=== PATIENT | male | born 2005 | race Caucasian/White ===

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

== ENCOUNTER 2024-04-08 17:05 | Emergency (ER) | payer OTHER, SELFPAY ==
[2024-04-08 17:25] VITALS: BP 128/63; PULSE 62; RESP 14; TEMP 36.3; O2SAT 97
--- NOTE | 2024-04-08 17:38 | ED.URI ---
HPI - URI/Sore Throat General Chief Complaint: Upper Respiratory Infection Stated Complaint: Sore Throat Time Seen by Provider: 04/08/24 17:47 Source: patient, RN notes reviewed and old records reviewed Mode of arrival: ambulatory Limitations: no limitations History of Present Illness HPI Narrative: 19-year-old male presents to the [facility] with a sore throat since yesterday. No treatment prior to arrival Reports some congestion. Denies fevers Related Data Home Medications Medication Instructions Recorded Confirmed sumatriptan succinate 25 mg tablet 25 mg PO DAILY 08/07/20 04/08/24 fluoxetine 20 mg capsule 20 mg PO DAILY 04/08/24 04/08/24 ropinirole 0.5 mg tablet 0.5 mg PO HS 04/08/24 04/08/24 Allergies Allergy/AdvReac Type Severity Reaction Status Date / Time codeine Allergy Mild Hives / Verified 04/08/24 17:14 Red Face bee venom protein (honey bee) AdvReac Swelling Verified 04/08/24 17:47 wasp AdvReac Swelling Uncoded 04/08/24 17:47 Review of Systems Review of Systems: All systems reviewed & are unremarkable except as noted in HPI and below Constitutional: Constitutional: Reports no additional constitutional complaints Eyes: Eyes: Reports no additional eye complaints ENT: Reports as per HPI, Reports nasal congestion and Reports sore throat Cardiovascular: Cardiovascular: Reports no additional cardiovascular complaints, Denies chest pain and Denies dyspnea Respiratory: Respiratory: Reports no additional respiratory complaints, Denies chest congestion, Denies cough and Denies dyspnea Gastrointestinal: Gastrointestinal: Reports no additional gastrointestinal complaints, Denies abdominal pain, Denies nausea and Denies vomiting Musculoskeletal: Musculoskeletal: Reports no additional musculoskeletal complaints Integumentary/Breasts: Skin/Breast: Reports system reviewed and no additional complaints, except as docu Neurologic: Reports system reviewed and no additional complaints, except as documented Psychiatric: Psychiatric: Reports no additional psychiatric complaints Allergic/Immunologic: Allergic/Immunologic: Reports no additional allergic/immunologic complaints [facility] Surgical History Surgical History History of tonsillectomy Social History Social History Gender identity (if verbalized by the patient): Male Sexual Orientation (if Verbalized by the Patient): Straight or Heterosexual Comments At the time of my signature, I reviewed and agree with the nursing past medical, surgical, social, and family history. There is no relevant family history pertinent to the patient complaint. Exam Const: General: cooperative, healthy appearing, comfortable, no acute distress, well developed, alert and well nourished Nutritional Appearance: well nourished and obese Orientation/consciousness: patient oriented x3 Limitations: no limitations HENMT: Head: normal to inspection Ears: hearing grossly normal bilaterally, external ears normal, TM's normal bilaterally, EAC's normal and mastoids normal Face/Nose/Sinus: Normal external nose present, Normal nares present, Normal nasal mucous membranes and turbinates present, No nasal discharge present, normal facial exam, sinuses nontender and face symmetric Face and sinus: normal facial exam and face symmetric Throat: posterior oropharynx normal, uvula midline, postnasal drainage, tonsils absent and no uvular edema Eyes: General: appearance normal, both eyes and all related structures Alignment and Position: alignment normal Periorbital: periorbital findings normal Pupils: Equal, round and reactive pupils present EOM: EOMs intact bilaterally Neck: Neck: normal visual inspection, full ROM, no lymphadenopathy and no meningeal signs Chest: Chest palpation & inspection: normal inspection of the chest Resp: Effort & Inspection: normal respiratory effort and
== END 2024-04-08 18:00 | disposition home or self-care (01) ==
PROVIDERS: Emergency Provider Nurse Practitioner; PCP Nurse Practitioner Family
DX: R09.82 Postnasal drip (principal); J02.9 Acute pharyngitis, unspecified
CPT/HCPCS: 87081; 87880; 99213; G0463

== ENCOUNTER 2025-02-26 08:29 | Emergency (ER) | payer OTHER, SELFPAY ==
[2025-02-26 08:45] VITALS: BP 134/80; PULSE 63; RESP 14; TEMP 37.1; O2SAT 99
--- NOTE | 2025-02-26 08:51 | ED.URI ---
HPI - URI/Sore Throat General Chief Complaint: Upper Respiratory Infection Stated Complaint: sore throat,cough Time Seen by Provider: 02/26/25 08:56 Source: patient and RN notes reviewed Mode of arrival: ambulatory Limitations: no limitations History of Present Illness HPI Narrative: 20-year-old male presents with concern for cough, postnasal drainage, sore throat, body aches. He has not taken any [id number] medications for his symptoms. He denies fever MD elicited complaint: cough and sore throat Related Data Allergies Allergy/AdvReac Type Severity Reaction Status Date / Time codeine Allergy Mild Hives / Verified 02/26/25 08:44 Red Face bee venom protein (honey bee) AdvReac Swelling Verified 02/26/25 08:44 wasp AdvReac Swelling Uncoded 02/26/25 08:44 Review of Systems Review of Systems: CONSTITUTIONAL: Denies malaise, chills, sweats, or fever. EYES: Denies visual changes, redness, or discharge. ENT: Reports rhinorrhea, congestion, and sore throat. CARDIOVASCULAR: Denies chest pain, palpitations, or edema. RESPIRATORY: Reports cough. Denies dyspnea. GASTROINTESTINAL: Denies abdominal pain, nausea, vomiting, diarrhea SKIN: Denies rash or itching. MUSCULOSKELETAL: Reports myalgia. NEUROLOGIC: Denies headache. All systems reviewed & are unremarkable except as noted in HPI and below PMFSH Surgical History Surgical History History of tonsillectomy Social History Social History Gender identity (if verbalized by the patient): Male Sexual Orientation (if Verbalized by the Patient): Straight or Heterosexual Comments At time of signature, agree with nursing past medical, surgical, social and family history. There is no relevant family history pertinent to the presenting complaint Exam Narrative: GENERAL: Well-appearing, well-nourished, and in no acute distress. HEAD: Normocephalic EYES: PERRLA, conjunctivae clear ENT: Nares clear, clear discharge. Mucous membranes moist. TM pearly george with dull light reflex bilaterally; no tragal tenderness. Oropharynx not erythematous without lesions. Tonsils not enlarged and without exudate, no drooling, no hoarseness, no trismus, uvula midline. NECK: Supple. No lymphadenopathy CHEST: Clear to auscultation, breath sounds equal. No wheezing, rhonchi, rales, or stridor. No respiratory distress, speaks in full sentences. HEART: Regular rate and rhythm. No murmur heard. SKIN: Warm, dry, no rash. NEURO: Alert and oriented x3. PSYCH: Normal mood and affect Course Course Emergency Course: Patient is aware of diagnosis, understands and agrees to treatment plan. Anticipatory guidance given. Patient agrees to follow-up as directed and is aware of reasons to seek care at the emergency department. Portions of this record may have been created with voice recognition software Level of Care: Express Care Visit Vital Signs Vital signs: Vital Signs Temperature 98.8 F 02/26/25 08:45 Pulse Rate 63 02/26/25 08:45 Respiratory Rate 14 02/26/25 08:45 Blood Pressure 134/80 02/26/25 08:45 Pulse Oximetry 99 02/26/25 08:45 Oxygen Delivery Room Air 02/26/25 08:45 Temperature 98.8 F 02/26/25 08:45 Pulse Rate 63 02/26/25 08:45 Respiratory Rate 14 02/26/25 08:45 Blood Pressure 134/80 02/26/25 08:45 Pulse Oximetry 99 02/26/25 08:45 Oxygen Delivery Room Air 02/26/25 08:45 Reviewed. MDM - URI/Sore Throat MDM Narrative Medical decision making narrative: Differential diagnosis considered: Danielle virus, strep pharyngitis, allergic rhinitis, upper respiratory tract infection, sinusitis, rhinosinusitis, nasopharyngitis. viral pharyngitis, otitis media, otitis externa, pneumonia, bronchitis, viral cough syndrome, viral syndrome, and influenza. Exam findings show no acute concerns or changes; patient is non-toxic appearing and is in no distress. Patient is appropriate for outpatient treatment and follow-up. Lab Data Attestation: I reviewed the patient's lab results. Critical Care Time Critical Care Time Critical Care Time: No Discharge Plan Discharge Clinical Impression: Upper respiratory infection Patient Disposition: Home Condition: Stable Instructions: Upper Respiratory Infection (ED) Additional Instructions: Your rapid COVID and flu tests are negative Your rapid strep swab was negative today at [facility]. A throat culture will be sent to the laboratory for further testing. If the test is positive, you will receive a phone call within 48 hours and an appropriate antibiotic will be initiated at that time. Your symptoms are likely due to a viral illness, which is not treated with antibiotics. Viral symptoms can be present for up to a few weeks. -Alternate Tylenol and Motrin per package directions for fever or pain. -Antihistamine medication such as Benadryl at night and Zyrtec during the day can help improve symptoms. -Eat and drink things that are easy to swallow, like tea or soup, or popsicles to suck on. -Oral rinses such as: Salt water gargles and/or may use topical anesthetic (eg. Chloraseptic spray) or lozenges to relieve dryness or throat pain). -Frequent hand washing or hand geriatric assistant is one of the best ways to prevent spread of infection. -Follow up with primary care provider in 2-3 days if condition is not improving; or seek ER visit if you have trouble breathing, cannot drink enough fluids, have muffled voice, difficulty opening your mouth, or severe swelling. Patient Language: Tristanian Prescriptions: New pseudoephedrine HCl [12 Hour Decongestant] 120 mg tablet extended release 120 mg PO Q12H PRN (Reason: nasal congestion) Qty: 20 0RF dextromethorphan-guaifenesin [Mucinex DM] 60-1,200 mg tablet extended release 12 hr 1 tablet PO Q12H Qty: 12 0RF Follow-up/Referrals: PHYSICIAN NOT ON STAFF,NONSTAFF [Primary Care Provider] - Time of Disposition: 09:05
[2025-02-26 09:41] LABS: EDCOVIDSCREEN Negative (Negative); EDINFLUASCREEN Negative (Negative); EDINFLUBSCREEN Negative (Negative); EDSTREPNEGPOS1 Negative (Negative)
== END 2025-02-26 09:12 | disposition home or self-care (01) ==
PROVIDERS: Emergency Provider Nurse Practitioner
DX: J06.9 Acute upper respiratory infection, unspecified (principal); Z20.822 Contact with and (suspected) exposure to COVID-19
CPT/HCPCS: 87081; 87426; 87804; 87880; 99213; G0463

== ENCOUNTER 2025-03-10 16:06 | Emergency (ER) | payer OTHER, SELFPAY ==
[2025-03-10 16:14] VITALS: BP 121/71; PULSE 70; RESP 18; TEMP 36.5; O2SAT 96
--- NOTE | 2025-03-10 16:14 | ED_ITS ---
HPI - Ear Problem General Chief complaint: Ear Stated complaint: Left Ear Irritation Time Seen by Provider: 03/10/25 16:14 Source: patient, RN notes reviewed and old records reviewed Mode of arrival: ambulatory Limitations: no limitations History of Present Illness HPI Narrative: 20-year-old male presents to the [facility] with left ear pressure. States started about a week ago after he was diagnosed with an upper respiratory virus, had colds primary who did call in azithromycin for the upper respiratory virus. Related Data Allergies Allergy/AdvReac Type Severity Reaction Status Date / Time codeine Allergy Mild Hives / Verified 03/10/25 16:07 Red Face bee venom protein (honey bee) AdvReac Swelling Verified 03/10/25 16:07 wasp AdvReac Swelling Uncoded 03/10/25 16:07 Review of Systems Review of Systems: All systems reviewed & are unremarkable except as noted in HPI and below Constitutional: Constitutional: Reports no additional constitutional complaints ENT: Reports as per HPI Cardiovascular: Cardiovascular: Reports no additional cardiovascular complaints, Denies chest pain and Denies dyspnea Respiratory: Respiratory: Reports no additional respiratory complaints, Denies chest congestion, Denies cough and Denies dyspnea Musculoskeletal: Musculoskeletal: Reports no additional musculoskeletal complaints Integumentary/Breasts: Skin/Breast: Reports system reviewed and no additional complaints, except as docu PMFSH Surgical History Surgical History History of tonsillectomy Social History Social History Gender identity (if verbalized by the patient): Male Sexual Orientation (if Verbalized by the Patient): Straight or Heterosexual Comments At the time of my signature, I reviewed and agree with the nursing past medical, surgical, social, and family history. There is no relevant family history pertinent to the patient complaint. Exam Const: General: cooperative, healthy appearing, comfortable, no acute distress, well developed, alert and well nourished Nutritional Appearance: well nourished Orientation/consciousness: patient oriented x3 Limitations: no limitations HENMT: Head: normal to inspection Ears: hearing grossly normal bilaterally, external ears normal and TM abnormal with fluid behind the TM bilateral; not bulging and not erythematous Face/Nose/Sinus: Normal external nose present, Normal nares present and No nasal discharge present Face and sinus: normal facial exam and face symmetric Mouth: Yes Normal oral and palatal mucosa present, Yes lip normal, Yes tongue normal and Yes moist mucous membranes Throat: posterior oropharynx normal, uvula midline and no uvular edema Eyes: General: appearance normal, both eyes and all related structures Alignment and Position: alignment normal Neck: Neck: normal visual inspection, full ROM, no lymphadenopathy and no meningeal signs Chest: Chest palpation & inspection: normal inspection of the chest Resp: Effort & Inspection: normal respiratory effort and able to speak in complete sentences Auscultation: clear to auscultation bilaterally, no crackles, no rales, no rhonchi and no wheezes Cardio: Rate: regular rate Skin: General skin exam: normal color and no rashes or lesions noted Neuro: General: patient oriented x3, gait normal, moves all extremities and no meningeal signs Cognition (Neuro): normal cognition Speech: normal speech Gait exam (Neuro): Normal gait present Extrem: General: normal to inspection, full ROM, capillary refill normal and normal gait Psych: Appearance: grossly normal and well kempt Mental Status: mental status grossly normal Speech and movement: Normal speech and movement present and Clear speech present Affect: normal affect Attitude: cooperative Course Course Level of Care: Express Care Visit Vital Signs Vital signs: Vital Signs Temperature 97.7 F 03/10/25 16:14 Pulse Rate 70 03/10/25 16:14 Respiratory Rate 18 03/10/25 16:14 Blood Pressure 121/71 03/10/25 16:14 Pulse Oximetry 96 03/10/25 16:14 Oxygen Delivery Room Air 03/10/25 16:14 Temperature 97.7 F 03/10/25 16:14 Pulse Rate 70 03/10/25 16:14 Respiratory Rate 18 03/10/25 16:14 Blood Pressure 121/71 03/10/25 16:14 Pulse Oximetry 96 03/10/25 16:14 Oxygen Delivery Room Air 03/10/25 16:14 Reviewed Medical Decision Making MDM Narrative Medical decision making narrative: Patient sitting in exam room. Patient is nontoxic, vitals stable. Patient presents with left ear discomfort, pressure and feeling there is fluid in the ear. Is currently on azithromycin. Clear fluid noted, no erythema. Patient appropriate for outpatient treatment with close follow-up Discharge instructions reviewed with patient, as well as provided in writing per nursing staff. The instructions also include specific and strict return/GO TO THE ER as well as f/u information. All questions have been answered, and the patient deny any further questions with discharge and discharge plan. Some parts of this dictation were generated by voice recognition software and may contain typographical and/or grammatical inaccuracies. Differential Diagnosis Differential Diagnosis: Otitis media, serous otitis, otitis externa, URI Medical Records Medical records reviewed: Yes I reviewed the external patient's medical records. Vital Signs Vital Signs: Vital Signs Temperature 97.7 F 03/10/25 16:14 Pulse Rate 70 03/10/25 16:14 Respiratory Rate 18 03/10/25 16:14 Blood Pressure 121/71 03/10/25 16:14 Pulse Oximetry 96 03/10/25 16:14 Oxygen Delivery Room Air 03/10/25 16:14 Temperature 97.7 F 03/10/25 16:14 Pulse Rate 70 03/10/25 16:14 Respiratory Rate 18 03/10/25 16:14 Blood Pressure 121/71 03/10/25 16:14 Pulse Oximetry 96 03/10/25 16:14 Oxygen Delivery Room Air 03/10/25 16:14 Reviewed Lab Data Lab results reviewed: Yes I reviewed the patient's lab results. Labs: Reviewed Critical Care Time Critical Care Time Critical Care Time: No Discharge Plan Discharge Clinical Impression: Earache on left Patient Disposition: Home Condition: Stable Instructions: Antibiotic Form, Earache (ED), Fluid In The Ear (Serous Otitis Media) (ED) Additional Instructions: Take allergy medication such as Claritin or Zyrtec daily Use Flonase nasal spray twice daily for 5 days then daily. Follow-up with primary care provider Patient Language: Upper Sorbian Follow-up/Referrals: PHYSICIAN,SHIPYARD PAINTER APPRENTICE [Primary Care Provider] - Time of Disposition: 16:21
== END 2025-03-10 16:25 | disposition home or self-care (01) ==
PROVIDERS: Emergency Provider Nurse Practitioner
DX: H92.02 Otalgia, left ear (principal)
CPT/HCPCS: 99211; G0463

== ENCOUNTER 2025-04-02 09:21 | Emergency (ER) | payer OTHER, SELFPAY ==
--- NOTE | ~2025-04-02 | XR_ITS ---
Clinical Indication: Cough, shortness of breath PA and lateral views of the chest: Comparison: None Findings: The lungs are clear, without evidence of focal consolidation or pleural effusion. Cardiome diastinal silhouette is within normal limits. Bones and soft tissues are unremarkable. Impression: Normal chest. Reviewed, dictated and finalized at location . Impression: Normal chest.
--- NOTE | 2025-04-02 09:27 | ED.URI ---
HPI - URI/Sore Throat General Chief Complaint: Upper Respiratory Infection Stated Complaint: Cough/Congestion Time Seen by Provider: 04/02/25 09:40 Source: patient Mode of arrival: ambulatory Limitations: no limitations History of Present Illness HPI Narrative: Bart is a 20-year-old male patient presenting to the clinic today with complaints of nonproductive cough, congestion, loss of taste, loss of smell, shortness of breath, and chest discomfort with coughing x1 week. History of asthma. Does smoke marijuana. Denies any fevers, chills, body aches. He feels short of breath more on exertion. Does not take any medications on a daily basis. Does not have an albuterol inhaler at home. Related Data Allergies Allergy/AdvReac Type Severity Reaction Status Date / Time codeine Allergy Mild Hives / Verified 04/02/25 09:55 Red Face bee venom protein (honey bee) AdvReac Swelling Verified 04/02/25 09:55 wasp AdvReac Swelling Uncoded 04/02/25 09:55 Review of Systems Review of Systems: Pertinent positives per HPI. Patient denies any fever, chills, rash, headache, visual changes, dizziness, chest pain, palpitations, nausea, vomiting, diarrhea, constipation, abdominal pain, or any urinary issues. FORMERLY [facility], [facility]–1983 Surgical History Surgical History History of tonsillectomy Social History Social History Gender identity (if verbalized by the patient): Male Sexual Orientation (if Verbalized by the Patient): Straight or Heterosexual Comments At the time of my signature, I reviewed and agree with the nursing past medical, surgical, social, and family history. There is no relevant family history pertinent to the patient complaint. Exam Narrative: General: Well-developed, well nourished, in no apparent distress Head: Normocephalic, atraumatic Eyes: Pupils equally round and reactive to light bilaterally, EOM intact, sclera and conjunctive clear, no discharge, lids normal Ears: TMs intact and clear, ear canals clear, no drainage, grossly hearing normal. Nose: Nares patent, clear nasal discharge, moderate inflammation, no sinus tenderness. Mouth: Oral pharynx red without lesions or masses, good dentition, MMM. Neck: Supple, trachea midline, no enlargement of anterior or posterior cervical nodes, no thyroid masses or goiter palpable. Cardio: Regular rate and rhythm, s1 and s2 normal, no murmur appreciated. Resp: Diminished breath sounds throughout lung adhikari, no rhonchi, rales, wheezing or rubs, SpO2 95% on room air, no retractions or tripod positioning, able to speak in full sentences Course Course Emergency Course: Portions of this record may have been created with voice recognition software. Level of Care: Express Care Visit Vital Signs Vital signs: Vital Signs Temperature 36.2 C L 04/02/25 09:34 Pulse Rate 66 04/02/25 09:34 Respiratory Rate 20 04/02/25 09:34 Blood Pressure 141/78 H 04/02/25 09:34 Pulse Oximetry 95 04/02/25 09:34 Oxygen Delivery Room Air 04/02/25 09:34 Temperature 36.2 C L 04/02/25 09:34 Pulse Rate 66 04/02/25 09:34 Respiratory Rate 20 04/02/25 09:34 Blood Pressure 141/78 H 04/02/25 09:34 Pulse Oximetry 95 04/02/25 09:34 Oxygen Delivery Room Air 04/02/25 09:34 Vital signs reviewed MDM - URI/Sore Throat MDM Narrative Medical decision making narrative: At the time of visit patient is resting comfortably on the exam table. Patient appears to be nontoxic. Labs: COVID testing was negative. Diagnostics: Chest x-ray is negative for any acute cardiopulmonary process. Medications: DuoNeb treatment was given in the clinic today. Patient's lung sounds improved and he reports feeling like his shortness of breath has resolved Well criteria for PE: 0.0?points Low risk group: 1.3% chance of PE in an ED population. Plan: I suspect patient has URI with asthma exacerbation. Prescription for albuterol inhaler prednisone was sent to pharmacy. No sign of bacterial infection in the clinic today. Supportive measures were discussed with the patient and they voiced understanding discharge instructions and agrees to treatment plan. Return precautions reviewed Differential Diagnosis Differential diagnosis: Likely upper respiratory infection, otitis media (Asthma, pneumonia), sinusitis, viral infection, bronchitis, influenza, pharyngitis and other (COVID) Lab Data Labs: Lab Results 04/02/25 Range/Units 09:30 POC SARS CoV-2 Ag Negative (Negative) Imaging Data Radiologist's impression: ITS Impressions Chest X-Ray 04/02/25 09:56 Impression: Normal chest. Discharge Plan Discharge Clinical Impression: URI (upper respiratory infection) Qualifiers: URI type: unspecified URI Qualified Code(s): J06.9 - Acute upper respiratory infection, unspecified Asthma exacerbation Qualifiers: Asthma severity: unspecified severity Asthma persistence: unspecified Qualified Code(s): J45.901 - Unspecified asthma with (acute) exacerbation Patient Disposition: Home Condition: Stable Instructions: Antibiotic Form, Asthma (ED), Cold Symptoms (ED) Additional Instructions: COVID testing was negative in the clinic today. Chest x-rays negative for any acute cardiopulmonary process. No sign of bacterial infection in the clinic today Take prescription medications only as prescribed-prednisone and albuterol inhaler Increase fluids and stay well hydrated Tylenol/motrin for pain/fever Flonase and OTC antihistamines as directed Vicks vapor rub to open sinuses Sinus rinses for congestion Cepacol spray, cough drops, throat lozenges, warm tea with honey/lemon, gargle salt water to soothe throat BRAT diet for diarrhea Clear liquids x 24 hours then advance as tolerated for nausea/vomiting Go to the ED if you develop a worsening in your condition- high fever not controlled by Tylenol or Motrin, dehydration, weakness, lethargy, shortness of breath, or chest pain. Follow up with your PCP in 3-5 days if symptoms persist. Patient Language: Egyptian Prescriptions: New prednisone 20 mg tablet 40 mg PO DAILY 5 Days Qty: 10 0RF albuterol sulfate 90 mcg/actuation HFA aerosol inhaler 2 puff inhalation Q4-6H PRN (Reason: shortness of breath or wheezing) 30 Days Qty: 8.5 0RF Follow-up/Referrals: PHYSICIAN,STEAM METER READER [Primary Care Provider] - Time of Disposition: 10:03 Quality NIHSS Nursing Documentation ED NIHSS nursing documentation: reviewed/agree
[2025-04-02 09:34] VITALS: BP 141/78; PULSE 66; RESP 20; TEMP 36.2; O2SAT 95
[2025-04-02 09:55] LABS: EDCOVIDSCREEN Negative (Negative)
[2025-04-02] MEDS: IPRATROPIUM 0.5 MG/ALBUTEROL SULFATE 2.5 MG AMPUL.NEB 3 ML INHALATION (10:00)
== END 2025-04-02 10:16 | disposition home or self-care (01) ==
PROVIDERS: Emergency Provider Nurse Practitioner Family
DX: J06.9 Acute upper respiratory infection, unspecified (principal); J45.901 Unspecified asthma with (acute) exacerbation; Z20.822 Contact with and (suspected) exposure to COVID-19
CPT/HCPCS: 71046; 87426; 94640; 99213; G0463

== ENCOUNTER 2025-06-16 18:04 | Emergency (ER) | payer OTHER, SELFPAY ==
--- NOTE | 2025-06-16 18:06 | ED_ITS ---
HPI - General Adult General Chief complaint: Upper Respiratory Infection Stated complaint: Sore Throat Time Seen by Provider: 06/16/25 18:06 Source: patient Mode of arrival: ambulatory Limitations: no limitations History of Present Illness HPI narrative: 20-year-old male patient presents to the [facility] with complaints of cold symptoms for the past 5-7 days. Patient states he has had a cough, sore throat. Patient states he did have some body aches and chills but most of his symptoms have resolved but now only complain about the cough and sore throat. Patient states he has been taking some Tylenol and effc-wxs-jysuqrc mucus medication. Related Data Allergies Allergy/AdvReac Type Severity Reaction Status Date / Time codeine Allergy Mild Hives / Verified 06/16/25 18:05 Red Face bee venom protein (honey bee) AdvReac Swelling Verified 06/16/25 18:05 wasp AdvReac Swelling Uncoded 06/16/25 18:05 Review of Systems Review of Systems: CONSTITUTIONAL: Denies fever, chills, or sweats. EYES: Denies visual changes, redness, or discharge. ENT: Positive rhinorrhea, congestion, positive sore throat, denies otalgia. CARDIOVASCULAR: Denies chest pain, palpitations, or edema. RESPIRATORY: Denies cough or dyspnea. GASTROINTESTINAL: Denies abdominal pain, nausea, vomiting, or diarrhea. GENITOURINARY: Denies dysuria or hematuria. SKIN: Denies rash or itching. MUSCULOSKELETAL: Denies back pain, joint pain, or myalgia. NEUROLOGIC: Denies headache, numbness, or weakness. PSYCHIATRIC: Denies anxiety or depression. [facility] Past Medical History Medical History IBS (irritable bowel syndrome) Surgical History Surgical History History of tonsillectomy Social History Social History Gender identity (if verbalized by the patient): Male Sexual Orientation (if Verbalized by the Patient): Straight or Heterosexual Comments At the time of my signature I agree with nursing past medical history, surgical, social, and family history. There is no relevant family history pertinent to the presenting complaint. Exam Narrative: GENERAL: Well-appearing, well-nourished, and in no acute distress. HEAD: Normocephalic, atraumatic. EYES: PERRLA and EOMI. ENT: Nares clear, no rhinorrhea or epistaxis. Mucous membranes moist. Posterior pharynx with no erythema, tonsillar enlargement, exudates or lesions present. Bilateral TMs are clear no erythema or foreign bodies canal. NECK: Supple. No lymphadenopathy CHEST: Clear to auscultation. No respiratory distress. HEART: Regular rate and rhythm. No murmur heard. Normal peripheral pulses. ABDOMEN: Soft, nontender, nondistended, normal active bowel sounds. EXTREMITIES: Normal range of motion. No edema. SKIN: Warm, dry, no rash. NEURO: No focal deficits. Alert and oriented x3. Course Course Level of Care: Express Care Visit Vital Signs Vital signs: Vital Signs Temperature 36.6 C 06/16/25 18:14 Pulse Rate 68 06/16/25 18:14 Respiratory Rate 18 06/16/25 18:14 Blood Pressure 157/83 H 06/16/25 18:14 Pulse Oximetry 99 06/16/25 18:14 Oxygen Delivery Room Air 06/16/25 18:14 Temperature 36.6 C 06/16/25 18:14 Pulse Rate 68 06/16/25 18:14 Respiratory Rate 18 06/16/25 18:14 Blood Pressure 157/83 H 06/16/25 18:14 Pulse Oximetry 99 06/16/25 18:14 Oxygen Delivery Room Air 06/16/25 18:14 Vital signs reviewed. Medical Decision Making MDM Narrative Medical decision making narrative: Notified patient that his strep, COVID and flu have all come back negative. Discussed with him he most likely has some type of virus. Discussed with him some kjne-qdk-hqfuceh medications that he can use as well as home remedies to help with the symptoms. Differential Diagnosis Differential Diagnosis: Differential diagnosis: Viral pharyngitis, pharyngitis, group A strep, infectious mononucleosis, gonococcal pharyngitis, exudative pharyngitis, oral candidiasis. Chronic allergies, postnasal drip, GERD, abscess formation, but glottitis, retropharyngeal abscess formation, or airway obstruction. Vital Signs Vital Signs: Vital Signs Temperature 36.6 C 06/16/25 18:14 Pulse Rate 68 06/16/25 18:14 Respiratory Rate 18 06/16/25 18:14 Blood Pressure 157/83 H 06/16/25 18:14 Pulse Oximetry 99 06/16/25 18:14 Oxygen Delivery Room Air 06/16/25 18:14 Temperature 36.6 C 06/16/25 18:14 Pulse Rate 68 06/16/25 18:14 Respiratory Rate 18 06/16/25 18:14 Blood Pressure 157/83 H 06/16/25 18:14 Pulse Oximetry 99 06/16/25 18:14 Oxygen Delivery Room Air 06/16/25 18:14 Lab Data Labs: Lab Results 06/16/25 Range/Units 18:19 POC Grp A Strep Screen Pending Critical Care Time Critical Care Time Critical Care Time: No Discharge Plan Discharge Clinical Impression: Viral URI Patient Disposition: Home Condition: Stable Instructions: Antibiotic Form, Viral Syndrome (ED) Additional Instructions: Viral illness may last between 7-12days; antibiotic is NOT recommended at this time. Recommend antihistamine such as Benadryl at night time and Claritin/Zyrtec/Elvia during the day May use qlov-omw-dayrgih vitamins to help boost your immune system such as vitamin-C, vitamin-D and zinc. May use warm salt water to gargle to help with the throat pain along with hot tea and honey to help with the sore throat and cough. Also, recommend symptomatic treatment includes: rest, fluids, and increase humidity of the air at home. Recommend Acetaminophen or nonsteroidal anti-inflammatory agents (NSAIDs) as directed in the bottle to reduce fever and/pain/headache. Avoid smoking/second-hand smoke. Limit visits to areas with large crowds. Please schedule a follow-up visit with your personal physician for further evaluation and treatment within 3-5days. Including recheck and discussion of your blood pressure. If your symptoms persist, change or worsen significantly before you can contact your personal physician then please, without delay, go to the emergency department for further evaluation. Patient Language: Hungarian Follow-up/Referrals: PHYSICIAN,ELECTROSTATIC PAINTER [Primary Care Provider] - Time of Disposition: 18:27
[2025-06-16 18:14] VITALS: BP 157/83; PULSE 68; RESP 18; TEMP 36.6; O2SAT 99
[2025-06-16 18:21] LABS: EDSTREPNEGPOS1 Negative (Negative)
[2025-06-16 18:38] LABS: EDCOVIDSCREEN Negative (Negative); EDINFLUASCREEN Negative (Negative); EDINFLUBSCREEN Negative (Negative)
== END 2025-06-16 18:40 | disposition home or self-care (01) ==
PROVIDERS: Emergency Provider Nurse Practitioner Family
DX: J06.9 Acute upper respiratory infection, unspecified (principal); Z20.822 Contact with and (suspected) exposure to COVID-19
CPT/HCPCS: 87081; 87426; 87804; 87880; 99213; G0463

== ENCOUNTER 2025-08-15 08:51 | Emergency (ER) | payer OTHER, SELFPAY ==
--- NOTE | 2025-08-15 08:54 | ED.GENADULT ---
HPI - General Adult General Chief complaint: Nausea/Vomiting/Diarrhea Stated complaint: nausea/vomiting Source: patient Mode of arrival: ambulatory Limitations: no limitations History of Present Illness HPI narrative: Pt is a 20 y/o male presenting with c/o N,V x 3 days. Reports single episode of nonbloody, nonbilious emesis yesterday. No diarrhea. NO recent travel. No known exposure to foods. NO recent abx use. No similar sx among household contacts. No recent dietary changes. 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 Related Data Home Medications ?Medication ?Instructions ?Recorded ?Confirmed ?Last Taken ?Type albuterol sulfate 90 mcg/actuation inhalation 08/15/25 Unknown History aerosol inhaler Allergies Allergy/AdvReac Type Severity Reaction Status Date / Time codeine Allergy Mild Hives / Verified 06/16/25 18:05 Red Face bee venom protein (honey bee) AdvReac Swelling Verified 06/16/25 18:05 wasp AdvReac Swelling Uncoded 06/16/25 18:05 Review of Systems Review of Systems: CONSTITUTIONAL: Denies body aches, fever, chills, or sweats. EYES: Denies visual changes, redness, or discharge. ENT: Denies rhinorrhea, congestion, sore throat, or otalgia. CARDIOVASCULAR: Denies chest pain, palpitations, or edema. RESPIRATORY: Denies cough or dyspnea. GASTROINTESTINAL:reports nausea, vomiting. Denies abdominal pain or diarrhea. GENITOURINARY: Denies dysuria or hematuria. SKIN: Denies rash, itching, or wounds. MUSCULOSKELETAL: Denies back pain, joint pain, or myalgia. NEUROLOGIC: Denies headache, numbness, tingling, or weakness. PSYCH: Denies depression or anxiety. All systems reviewed & are unremarkable except as noted in HPI and below PMFSH Past Medical History Medical History IBS (irritable bowel syndrome) Surgical History Surgical History History of tonsillectomy Social History Social History Gender identity (if verbalized by the patient): Male Sexual Orientation (if Verbalized by the Patient): Straight or Heterosexual Exam Narrative: GENERAL: Well-appearing, well-nourished, and in no acute distress. HEAD: Normocephalic, atraumatic. EYES: EOMI. No redness or drainage. Conjunctivae normal. ENT: Mucous membranes pink and moist. Nares clear. No rhinorrhea. TMs normal bilaterally. Tonsils are surgically absent. Throat normal. Uvula midline. NECK: Normal AROM. Supple. CHEST: No respiratory distress. Clear to auscultation. HEART: Regular rate and rhythm. No murmur appreciated. Normal peripheral pulses. ABDOMEN: Soft, nontender, nondistended, normal active bowel sounds. EXTREMITIES: Normal range of motion. No edema. SKIN: Warm, dry, no rash. Capillary refill normal. Normal skin turgor. NEURO: No focal deficits. Alert and oriented x3. Gait steady. PSYCH: Normal affect. No signs of depression or anxiety. Course Course Level of Care: Express Care Visit Vital Signs Vital signs: Vital Signs Temperature 97.3 F L 08/15/25 08:59 Pulse Rate 71 08/15/25 08:59 Respiratory Rate 18 08/15/25 08:59 Blood Pressure 137/82 08/15/25 08:59 Pulse Oximetry 99 08/15/25 08:59 Oxygen Delivery Room Air 08/15/25 08:59 Temperature 97.3 F L 08/15/25 08:59 Pulse Rate 71 08/15/25 08:59 Respiratory Rate 18 08/15/25 08:59 Blood Pressure 137/82 08/15/25 08:59 Pulse Oximetry 99 08/15/25 08:59 Oxygen Delivery Room Air 08/15/25 08:59 Medical Decision Making Vital Signs Vital Signs: Vital Signs Temperature 97.3 F L 08/15/25 08:59 Pulse Rate 71 08/15/25 08:59 Respiratory Rate 18 08/15/25 08:59 Blood Pressure 137/82 08/15/25 08:59 Pulse Oximetry 99 08/15/25 08:59 Oxygen Delivery Room Air 08/15/25 08:59 Temperature 97.3 F L 08/15/25 08:59 Pulse Rate 71 08/15/25 08:59 Respiratory Rate 18 08/15/25 08:59 Blood Pressure 137/82 08/15/25 08:59 Pulse Oximetry 99 08/15/25 08:59 Oxygen Delivery Room Air 08/15/25 08:59 Discharge Plan Discharge Clinical Impression: Nausea & vomiting Qualifiers: Vomiting type: unspecified Qualified Code(s): R11.2 - Nausea with vomiting, unspecified Patient Disposition: Home Condition: Stable Instructions: Acute Nausea and Vomiting (ED) Additional Instructions: Go straight to ER should your symptoms become worse or should any new symptoms develop Patient Language: Sinhala Prescriptions: New ondansetron 4 mg tablet,disintegrating 4 mg PO Q8H PRN (Reason: nausea and vomiting) Qty: 10 0RF No Action albuterol sulfate 90 mcg/actuation HFA aerosol inhaler INHALATION Follow-up/Referrals: Hermes,Jolene Gottlieb, WET END HELPER [Primary Care Provider, Unknown] - 08/16/25 Time of Disposition: 08:59
[2025-08-15 08:59] VITALS: BP 137/82; PULSE 71; RESP 18; TEMP 36.3; O2SAT 99
== END 2025-08-15 09:04 | disposition home or self-care (01) ==
PROVIDERS: Emergency Provider Registered Nurse
DX: R11.2 Nausea with vomiting, unspecified (principal)
CPT/HCPCS: 99213; G0463

== ENCOUNTER 2025-08-27 17:31 | Emergency (ER) | payer OTHER, SELFPAY ==
--- NOTE | ~2025-08-27 | XR_ITS ---
EXAMINATION: XR abdomen/kub 1V DATE: 08/27/2025 18:00 INDICATION: 3 weeks of nausea, vomiting and diarrhea TECHNIQUE: A supine view of the abdomen on 2 radiographs was obtained. COMPARISON: None. FINDINGS: Small amount of scattered bowel gas predominantly along with small amount of stool in the proximal colon. No dilated loops of gas-filled bowel to suggest obstruction. Lung bases are clear. Minimal thoracolumbar dextrocurvature. IMPRESSION: 1. No dilated loops of gas-filled bowel to suggest obstruction. Reviewed, dictated and finalized at location A.
[2025-08-27 17:39] VITALS: BP 135/71; PULSE 78; RESP 18; TEMP 36.6; O2SAT 100
--- NOTE | 2025-08-27 18:04 | ED_ITS ---
HPI - Nausea/Vomiting/Diarrhea General Chief complaint: Nausea/Vomiting/Diarrhea Stated complaint: nausea/vomiting/diarrhea Time Seen by Provider: 08/27/25 17:33 Source: patient Mode of arrival: ambulatory Limitations: no limitations History of Present Illness HPI Narrative: Bart is a 20-year-old male patient presenting to the clinic today with complaints of nausea, vomiting, and diarrhea x3 weeks. He reports he was seen on August 15 and was given prescription for Zofran at that time. He reports that he had fever at the beginning of his illness however he has does not have fever now. His fever was high as 101. He states now he is having diarrhea and he was initially just having nausea vomiting. Denies any blood in his stool or in his emesis. Is complaining of some upper abdominal discomfort. No changes in diet or recent antibiotics. No one else at home has same symptoms. History of IBS. Related Data Home Medications ?Medication ?Instructions ?Recorded ?Confirmed ?Last Taken ?Type albuterol sulfate 90 mcg/actuation inhalation 08/15/25 Unknown History aerosol inhaler Allergies Allergy/AdvReac Type Severity Reaction Status Date / Time codeine Allergy Mild Hives / Verified 08/27/25 17:47 Red Face bee venom protein (honey bee) AdvReac Swelling Verified 06/16/25 18:05 wasp AdvReac Swelling Uncoded 06/16/25 18:05 Review of Systems Review of Systems: Pertinent positives per HPI. Patient denies any fever, chills, rash, headache, visual changes, dizziness, cough, runny nose, sore throat, shortness of breath, chest pain, palpitations, constipation, or any urinary issues. [facility] Past Medical History Medical History IBS (irritable bowel syndrome) Surgical History Surgical History History of tonsillectomy Social History Social History Gender identity (if verbalized by the patient): Male Sexual Orientation (if Verbalized by the Patient): Straight or Heterosexual Comments At the time of my signature, I reviewed and agree with the nursing past medical, surgical, social, and family history. There is no relevant family history pertinent to the patient complaint. Exam Narrative: General: Well-developed, well nourished, in no apparent distress. Head: Normocephalic, atraumatic. Cardio: Regular rate and rhythm, s1 and s2 normal, no murmur appreciated. Resp: Clear to auscultation bilaterally, no rhonchi, rales, wheezing or rubs. Abdomen: Soft, pliable, nondistended, bowel sounds present in all quadrants, epigastric/upper abdomen tender to palpation, no organomegly, no CVAT tenderness. Course Course Emergency Course: Portions of this record may have been created with voice recognition software. Level of Care: Express Care Visit Vital Signs Vital signs: Vital Signs Temperature 36.6 C 08/27/25 17:39 Pulse Rate 78 08/27/25 17:39 Respiratory Rate 18 08/27/25 17:39 Blood Pressure 135/71 08/27/25 17:39 Pulse Oximetry 100 08/27/25 17:39 Temperature 36.6 C 08/27/25 17:39 Pulse Rate 78 08/27/25 17:39 Respiratory Rate 18 08/27/25 17:39 Blood Pressure 135/71 08/27/25 17:39 Pulse Oximetry 100 08/27/25 17:39 Vital signs reviewed MDM - Nausea/Vomiting/Diarrhea MDM Narrative Medical decision making narrative: At the time of visit patient is resting comfortably on the exam table. Patient appears to be nontoxic. complaints of nausea, vomiting, and diarrhea x3 weeks. He reports he was seen on August 15 and was given prescription for Zofran at that time. He reports that he had fever at the beginning of his illness however he has does not have fever now. His fever was high as 101. He states now he is having diarrhea and he was initially just having nausea vomiting. Denies any blood in his stool or in his emesis. Is complaining of some upper abdominal discomfort. No changes in diet or recent antibiotics. No one else at home has same symptoms. History of IBS. On exam patient is mucous membranes are moist, abdomen is soft, pliable, nondistended, bowel sounds present in all quadrants, epigastric/upper abdomen tender to palpation, no organomegly, no CVAT tenderness. KUB x-ray was ordered. Diagnostics: KUB x-ray was negative for any acute abdomen process. Plan: I suspect patient has gastroenteritis. Shared decision making provided: Offered to send patient to ED for further evaluation in the ED as he is reporting symptoms x 3 weeks. He could received further treatment- labs, stool studies, and abdomen/pelvis CT and received a more definitive diagnosis. He declined and would like to try outpatient medications for her symptoms and go to the ER if his symptoms worse. Does not want to wait in the ED. States he has to picker his father in a couple hours. His vital signs are stable. He has not had any vomiting or diarrhea since he has been at the clinic. Will send in Rx for omeprazole and ondansetron. May continue Imodium as long as there is no blood in his stool. Recommend follow up with PCP in 2-3 days if symptoms persist or go to the ED if symptoms worsen. Supportive measures were discussed with the patient and they voiced understanding discharge instructions and agrees to treatment plan. Return precautions reviewed Differential Diagnosis Differential diagnosis: Likely traveler's diarrhea, food poisoning, gastroenteritis, clostridium difficile infection, drug-induced nausea and vomiting, dehydration and other (IBS, Crohn's, ulcerative colitis, GERD) Imaging Data Radiologist's impression: ITS Impressions Abdomen X-Ray 08/27/25 18:13 IMPRESSION: 1. No dilated loops of gas-filled bowel to suggest obstruction. Discharge Plan Discharge Clinical Impression: Gastroenteritis Patient Disposition: Home Condition: Stable Instructions: Antibiotic Form, Gastroenteritis (ED) Additional Instructions: Offer to send you to the emergency room for further evaluation and you declined. Take prescription medications only as prescribed-omeprazole and ondansetron Increase fluids and stay well hydrated May take Tylenol or motrin as directed on bottle for pain/fever BRAT diet for diarrhea Clear liquids x 24 hours then advance as tolerated for nausea/vomiting Go to the ED if you develop a worsening in your condition- high fever not controlled by Tylenol or Motrin, dehydration, weakness, lethargy, shortness of breath, or chest pain. Follow up with your PCP in 3-5 days if symptoms persist. Patient Language: Pashto Prescriptions: New omeprazole 40 mg capsule,delayed release(DR/EC) 40 mg PO DAILY 30 Days Qty: 30 0RF ondansetron 4 mg tablet,disintegrating 8 mg PO Q8H PRN (Reason: nausea and vomiting) 5 Days Qty: 15 0RF No Action ondansetron 4 mg tablet,disintegrating 4 mg PO Q8H PRN (Reason: nausea and vomiting) Qty: 10 0RF albuterol sulfate 90 mcg/actuation HFA aerosol inhaler INHALATION Follow-up/Referrals: Hermes,Jolene Gottlieb, [employer] [Primary Care Provider, Unknown] Time of Disposition: 18:31 Quality NIHSS Nursing Documentation ED NIHSS nursing documentation: reviewed/agree
== END 2025-08-27 18:34 | disposition home or self-care (01) ==
PROVIDERS: Emergency Provider Nurse Practitioner Family
DX: K52.9 Noninfective gastroenteritis and colitis, unspecified (principal)
CPT/HCPCS: 74018; 99213; G0463